=== PATIENT | male | born 2000 | race Two or more races ===

== ENCOUNTER 2023-07-29 01:22 | Emergency (ER) | payer MEDICAID ==
[~2023-07-29] VITALS: Ht 167.6 cm; Wt 72.7 kg
[2023-07-29 01:25] VITALS: TEMP 98.6
[2023-07-29] MEDS ORDERED: CEPH-558 PO (02:11)
[2023-07-29] MEDS ORDERED: SULF-261 PO (02:12)
[2023-07-29] MEDS ORDERED: KETOROLAC TROMETHAMINE 60 MG/2 ML VIAL IM ONE (02:15)
[2023-07-29] MEDS ORDERED: SULFAMETHOX/TRIMETH DS 800-160 MG/TABLET PO ONE (02:15)
[2023-07-29] MEDS ORDERED: CEPHALEXIN MONOHYDRATE 500 MG CAPSULE PO ONE (02:15)
[2023-07-29 02:23] VITALS: BP 125/68; PULSE 95; RESP 14
== END 2023-07-29 02:23 | disposition home or self-care (01) ==
LOC: EMS 01:25
DX: L03.113 Cellulitis of right upper limb (principal); F12.90 Cannabis use, unspecified, uncomplicated; Z98.890 Other specified postprocedural states
CPT/HCPCS: 99283; 96372; J1885

== ENCOUNTER 2024-10-08 10:45 | Emergency (ER) | payer SELFPAY ==
[~2024-10-08] VITALS: Ht 170.2 cm; Wt 95.5 kg
[~2024-10-08 10:45] MED LIST: CEPH-558 PO; SULF-261 PO
[2024-10-08 10:47] VITALS: BP 124/78; PULSE 111; RESP 16; TEMP 101.1; O2SAT 97
[2024-10-08 10:53] LABS: COVID AG,FIA SOURCE NASAL SWAB
[2024-10-08 11:13] LABS: SARS-COV2 (COVID) ANTIGEN,FIA Negative (Negative)
[2024-10-08 11:14] LABS: INFLUENZA TYPE A POSITIVE FOR TYPE A (NEGATIVE)
[2024-10-08 11:16] LABS: INFLUENZA TYPE B NEGATIVE FOR TYPE B (NEGATIVE)
[2024-10-08] MEDS: IBUPROFEN 600 MG TABLET PO ONE (11:35)
[2024-10-08] MEDS: ACETAMINOPHEN 500 MG TABLET PO ONE (11:35)
[2024-10-08] MEDS ORDERED: OSEL75CA45 PO (12:09)
== END 2024-10-08 12:29 | disposition home or self-care (01) ==
LOC: EMS 10:45
DX: J10.1 Influenza due to other identified influenza virus with other respiratory manifestations (principal); F12.90 Cannabis use, unspecified, uncomplicated; Z20.822 Contact with and (suspected) exposure to COVID-19
CPT/HCPCS: 87804; 99283

== ENCOUNTER 2024-12-15 09:14 | Emergency (ER) | payer OTHER ==
[~2024-12-15] VITALS: Ht 177.8 cm; Wt 81.0 kg
[~2024-12-15 09:14] MED LIST changes: -CEPH-558 PO; +OSEL75CA45 PO; -SULF-261 PO
[2024-12-15 09:21] VITALS: BP 116/87; PULSE 89; RESP 16; TEMP 98.5; O2SAT 98
[2024-12-15] MEDS: PERTUSS(ACELL),DIPH,TET/PF 0.5 ML SYRINGE [ADULT] IM. ONE (09:51)
[2024-12-15] MEDS: ACETAMINOPHEN 500 MG TABLET PO ONE (09:52)
[2024-12-15] MEDS: SULFAMETHOX/TRIMETH DS 800-160 MG/TABLET PO ONE (09:52)
[2024-12-15] MEDS: CEPHALEXIN MONOHYDRATE 500 MG CAPSULE PO ONE (09:52)
[2024-12-15] MEDS ORDERED: BACITRACIN 0.9 GM PACKET OINTMENT TP ONE (10:22)
[2024-12-15] MEDS ORDERED: SULF-261 PO (11:44)
[2024-12-15] MEDS ORDERED: CEPH-558 PO (11:44)
== END 2024-12-15 10:52 | disposition home or self-care (01) ==
LOC: EMS 09:15
DX: S61.412A Laceration without foreign body of left hand, initial encounter (principal); F12.90 Cannabis use, unspecified, uncomplicated; Y04.0XXA Assault by unarmed brawl or fight, initial encounter; Y93.89 Activity, other specified; Y92.89 Other specified places as the place of occurrence of the external cause; Y99.8 Other external cause status
CPT/HCPCS: 12001; 90471; 90715; 99284